=== PATIENT | male | born 1950 | race Caucasian/White ===

== ENCOUNTER 2024-07-31 08:14 | Day surgery (SDC) | payer MEDICARE ==
[2024-07-31] MEDS: SODIUM CHLORIDE 0.9% 500 ML 500 ML IV ONE (08:56)
[2024-07-31 09:04] VITALS: TEMP 97.1
[2024-07-31] MEDS: SODIUM CHLORIDE 0.9% 500 ML 500 ML IV SCH (09:29)
[2024-07-31] MEDS ORDERED: BENZOCAINE SPRAY 1 CAN TOPICAL STA (09:42)
[2024-07-31] MEDS ORDERED: PROPOFOL 10 MG/ML 20 ML VIAL IV ONE (10:03)
[2024-07-31] MEDS: BENZOCAINE SPRAY 1 EACH MM ONE (10:04)
--- NOTE | 2024-07-31 11:03 | ECHOT ---
TRANSESOPHAGEAL ECHOCARDIOGRAM INDICATION: To rule out intracardiac thrombus in a patient with persistent atrial fibrillation. PROCEDURE NOTE: After obtaining informed consent, transesophageal echocardiogram was performed in left lateral position using an Omniplane probe. Local and IV sedation were obtained by the geophysical data technician, and the patient tolerated the procedure well without any obvious immediate complications. FINDINGS: 1. There is no intracardiac thrombus within the left atrial appendage, left atrium, left ventricle, right atrium, or right ventricle. 2. Left ventricle has normal size and systolic function. 3. There is mild mitral regurgitation noted. There is mild tricuspid regurgitation noted. Aortic valve is free of stenosis or regurgitation. There is mild dilatation of the aortic sinuses. There is no evidence of [id number] shunt by color-flow Doppler or [id number] shunt by agitated saline contrast study. CONCLUSIONS: No intracardiac thrombus. PLAN: The patient will undergo cardioversion. MMODL / IJN: [id number] /
[2024-07-31 11:10] VITALS: PULSE 61; RESP 12
--- NOTE | 2024-07-31 11:18 | PCN ---
PROCEDURE NOTE INDICATIONS: Persistent atrial fibrillation. DESCRIPTION OF PROCEDURE: After obtaining informed consent, ruling out intracardiac thrombus with the TAIWO, the patient underwent electrical cardioversion with 150 joules of synchronized DC current. He is adequately anticoagulated, converted to sinus rhythm following a single shock. INDIO / TESSY: [id number] /
[2024-07-31 11:28] VITALS: BP 114/73
== END 2024-07-31 11:47 | disposition home or self-care (01) ==
LOC: OR 08:14
PROVIDERS: ATTEND Internal Medicine Cardiovascular Disease
DX: I48.19 Other persistent atrial fibrillation (principal); I10 Essential (primary) hypertension; E78.5 Hyperlipidemia, unspecified; F32.A Depression, unspecified; F17.210 Nicotine dependence, cigarettes, uncomplicated; M19.90 Unspecified osteoarthritis, unspecified site; Z79.02 Long term (current) use of antithrombotics/antiplatelets; Z79.899 Other long term (current) drug therapy
CPT/HCPCS: 93312; 93320; 93325; 92960; J2704

== ENCOUNTER 2024-08-17 13:53 | Inpatient (IN) | payer MEDICARE ==
[2024-08-17 15:06] LABS: Basophils # (A) 0.1 k/uL (0-0.2); Basophils % (A) 1 %; Eosinophils # (A) 0.1 k/uL (0-0.7); Eosinophils % (A) 2 %; HCT 49.3 % (39.0-53.0); HGB 16.5 gm/dL (13.0-17.5); Lymphocytes # (A) 1.7 k/uL (1.0-4.8); Lymphocytes % (A) 22 %; MCH 29.6 pg (25.0-35.0); MCHC 33.5 g/dL (31.0-37.0); MCV 88.3 fL (80.0-100.0); Mean Platelet Volume 7.3; Monocytes # (A) 0.5 k/uL (0-1.0); Monocytes % (A) 6 %; Neutrophils # (A) 5.1 k/uL (1.3-7.7); Neutrophils % (A) 68 %; Platelet Count 226 k/uL (150-450); RBC 5.58 m/uL (4.30-5.90); RDW 12.9 % (11.5-15.5); WBC 7.6 k/uL (3.8-10.6)
[2024-08-17 15:14] LABS: Partial Thromboplastin Time 26.3 sec (22.0-30.0); Prothrombin Time 11.1 sec (10.0-12.5)
[2024-08-17 15:15] LABS: ALT 25 U/L (4-49); African American GFR (CKD) 83 (>60 ml/min/1.73 sqM); Albumin 4.1 g/dL (3.5-5.0); Anion Gap 11 mmol/L; Blood Urea Nitrogen 19 mg/dL (9-20); Carbon Dioxide 24 mmol/L (22-30); Chloride 99 mmol/L (98-107); Glucose 100 mg/dL (74-99); Non-African American GFR(CKD) 72 (>60 ml/min/1.73 sqM); Sodium 134 mmol/L (137-145); Total Bilirubin 1.1 mg/dL (0.2-1.3); Total Protein 7.5 g/dL (6.3-8.2)
[2024-08-17 15:16] LABS: AST 37 U/L (17-59); Alkaline Phosphatase 89 U/L (38-126); Calcium 9.1 mg/dL (8.4-10.2); Magnesium 1.9 mg/dL (1.6-2.3)
[2024-08-17] MEDS: SODIUM CHLORIDE 0.9% 1,000 ML IV ONE (15:48)
[2024-08-17] MEDS: DILTIAZEM 125 MG in SODIUM CHLORIDE 0.9% 100 ML IV SCH (15:48)
[2024-08-17] MEDS: DILTIAZEM DRIP BOLUS FROM BAG 1 MG SOLN IV ONE (15:49)
[2024-08-17] MEDS ORDERED: NALOXONE 0.4 MG/ML 1 ML VIAL IV PRN (15:51)
--- NOTE | 2024-08-17 15:51 | ED ---
Arrhythmia/Palpitations HPI - General Chief Complaint: Arrhythmia/Palpitations Stated Complaint: irregular heart rate Time Seen by Provider: 08/17/24 13:55 Source: patient Mode of arrival: ambulatory Limitations: no limitations - History of Present Illness Initial Comments: 74-year-old male with past medical history of A-fib who presents to the emergency department reporting fatigue. Reports that he went to [employer] this morning and felt short of breath and tired. He went home and took his vitals and found that his heart rate was 144. He does have a history of A-fib and typically checks his vitals daily. His heart rate was normal yesterday. He did have a cardioversion on the which was originally successful. States that he followed up with Dr. Steinberg in office for his follow-up and was found to be back in A-fib. Previously he took flecainide but at this appointment Dr. Steinberg told him to stop as it was "useless". He was told that he would have to see Dr. Price for an ablation. He called for an appointment however he cannot get in till October. Typically he cannot feel his heart racing. States when he was diagnosed he had no idea that he was in A-fib. Today was the first time that the patient felt slightly fatigued. He denies fevers, chills or cough. No chest pain. No abdominal pain. No other alleviating, precipitating or modifying factors - Related Data Home Medications Medication Instructions Recorded Confirmed Apixaban [Eliquis] 5 mg PO BID 07/29/24 08/17/24 Otc Prevagen 1 tab PO DAILY 07/29/24 08/17/24 Simvastatin [Zocor] 20 mg PO HS 07/29/24 08/17/24 Ibuprofen [Motrin Ib] 400 mg PO Q8H PRN 08/17/24 08/17/24 Previous Rx's Medication Instructions Recorded Dapagliflozin Propanediol [Farxiga] 10 mg PO DAILY #30 tab 08/19/24 Metoprolol Tartrate [Lopressor] 25 mg PO BID #60 tab 08/19/24 Allergies Allergy/AdvReac Type Severity Reaction Status Date / Time No Known Allergies Allergy Verified 08/17/24 19:22 Review of Systems ROS Statement: Those systems with pertinent positive or pertinent negative responses have been documented in the HPI. ROS Other: All systems not noted in ROS Statement are negative. Past Medical History Past Medical History: Atrial Fibrillation, Cancer, Hyperlipidemia, Hypertension, Osteoarthritis (OA) Additional Past Medical History / Comment(s): basal cell on face 20yrs ago. hx polyps History of Any Multi-Drug Resistant Organisms: None Reported Past Surgical History: Hernia Repair Additional Past Surgical History / Comment(s): basal cell removed, colonoscopy, ? comprehensive dx. [facility]. Cardioversion Past Anesthesia/Blood Transfusion Reactions: No Reported Reaction Past Psychological History: Depression Smoking Status: Former smoker - Past Family History Brother(s) Family Medical History: Chest Pain / Angina, Coronary Artery Disease (CAD) Additional Family Medical History / Comment(s): burst aortic aneursym, on O2 Father Family Medical History: Cancer Additional Family Medical History / Comment(s): bladder cancer Mother Additional Family Medical History / Comment(s): non hodgkins and hodgkins lymphoma General Exam Limitations: no limitations General appearance: alert, in no apparent distress Head exam: Present: atraumatic, normocephalic, normal inspection Eye exam: Present: normal appearance, PERRL, EOMI. Absent: scleral icterus, conjunctival injection, periorbital swelling ENT exam: Present: normal exam, mucous membranes moist Neck exam: Present: normal inspection. Absent: tenderness, meningismus, lympha denopathy Respiratory exam: Present: normal lung sounds bilaterally. Absent: respiratory distress, wheezes, rales, rhonchi, stridor Cardiovascular Exam: Present: tachycardia, irregular rhythm, normal heart sounds. Absent: systolic murmur, diastolic murmur, rubs, gallop, clicks GI/Abdominal exam: Present: soft, normal bowel sounds. Absent: distended, tenderness, guarding, rebound, rigid Extremities exam: Present: normal inspection, full ROM, normal capillary refill. Absent: tenderness, pedal edema, joint swelling, calf tenderness Back exam: Present: normal inspection Neurological exam: Present: alert, oriented X3, CN II-XII intact Psychiatric exam: Present: normal affect, normal mood Skin exam: Present: warm, dry, intact, normal color. Absent: rash Course Vital Signs 08/17/24 08/17/24 08/17/24 13:54 14:09 14:50 Temperature 98.1 F Pulse Rate 73 129 H Pulse Rate [ 141 H Electrical Cad Designer ] Respiratory 20 18 Rate Blood Pressure 135/91 91/71 O2 Sat by Pulse 100 99 Oximetry 08/17/24 08/17/24 08/17/24 15:29 16:00 16:09 Temperature Pulse Rate 141 H 71 70 Pulse Rate [ Electrical Cad Designer ] Respiratory 18 18 18 Rate Blood Pressure 101/90 108/71 104/76 O2 Sat by Pulse 99 97 96 Oximetry 08/17/24 08/17/24 08/17/24 16:15 16:30 16:45 Temperature Pulse Rate 70 70 Pulse Rate [ Electrical Cad Designer ] Respiratory 18 16 16 Rate Blood Pressure 104/76 112/79 108/70 O2 Sat by Pulse 97 96 94 L Oximetry 08/17/24 08/17/24 08/17/24 17:00 17:15 17:30 Temperature Pulse Rate 71 88 77 Pulse Rate [ Electrical Cad Designer ] Respiratory 16 18 18 Rate Blood Pressure 119/74 109/77 108/86 O2 Sat by Pulse 96 95 95 Oximetry 08/17/24 08/17/24 08/17/24 17:45 18:00 19:15 Temperature 99.4 F Pulse Rate 71 71 80 Pulse Rate [ Electrical Cad Designer ] Respiratory 16 15 20 Rate Blood Pressure 113/84 106/64 O2 Sat by Pulse 96 95 100 Oximetry 08/17/24 08/18/24 08/18/24 22:00 00:00 02:00 Temperature 98.1 F Pulse Rate 70 70 72 Pulse Rate [ Electrical Cad Designer ] Respiratory 20 20 20 Rate Blood Pressure 117/79 110/74 105/76 O2 Sat by Pulse 94 L 95 95 Oximetry 08/18/24 08/18/24 08/18/24 04:00 06:00 08:00 Temperature Pulse Rate 71 71 72 Pulse Rate [ Electrical Cad Designer ] Respiratory 18 18 20 Rate Blood Pressure 104/76 105/80 114/78 O2 Sat by Pulse 94 L 95 96 Oximetry 08/18/24 08/18/24 08/18/24 09:36 10:16 11:00 Temperature Pulse Rate 75 70 68 Pulse Rate [ Electrical Cad Designer ] Respiratory 20 20 20 Rate Blood Pressure 108/89 120/89 124/84 O2 Sat by Pulse 96 97 97 Oximetry 08/18/24 08/18/24 08/18/24 11:40 12:22 13:30 Temperature Pulse Rate 55 L 65 68 Pulse Rate [ Electrical Cad Designer ] Respiratory 20 20 Rate Blood Pressure 126/88 116/82 O2 Sat by Pulse 96 96 Oximetry 08/18/24 08/18/24 08/18/24 14:00 16:00 17:55 Temperature Pulse Rate 69 72 71 Pulse Rate [ Electrical Cad Designer ] Respiratory 20 20 20 Rate Blood Pressure 109/78 121/86 127/90 O2 Sat by Pulse 96 95 95 Oximetry 08/18/24 08/18/24 08/19/24 19:27 21:28 00:41 Temperature 98.1 F Pulse Rate 71 70 70 Pulse Rate [ Electrical Cad Designer ] Respiratory 18 18 17 Rate Blood Pressure 116/80 116/79 114/87 O2 Sat by Pulse 95 95 95 Oximetry 08/19/24 08/19/24 08/19/24 03:56 05:46 08:48 Temperature 97.8 F Pulse Rate 70 71 110 H Pulse Rate [ Electrical Cad Designer ] Respiratory 16 16 20 Rate Blood Pressure 132/87 111/68 111/50 O2 Sat by Pulse 94 L 95 95 Oximetry 08/19/24 08/19/24 10:59 13:48 Temperature Pulse Rate 110 H 110 H Pulse Rate [ Electrical Cad Designer ] Respiratory 20 20 Rate Blood Pressure 110/60 111/60 O2 Sat by Pulse 98 98 Oximetry Medical Decision Making - Medical Decision Making Was pt. sent in by a medical professional or institution (, PA, SPECIALIST ICU, urgent care, hospital, or care home...) When possible be specific @ -No Did you speak to anyone other than the patient for history (EMS, parent, family, police, friend...)? What history was obtained from this source @ -No Did you review nursing and triage notes (agree or disagree)? Why? @ -I reviewed and agree with nursing and triage notes Were old charts reviewed (outside hosp., previous admission, EMS record, old EKG, old radiological studies, urgent care reports/EKG's, care home records)? Report findings @ -Reviewed the patient's procedure note from his cardioversion from July 31 Differential Diagnosis (chest pain, altered mental status, abdominal pain women, abdominal pain men, vaginal bleeding, weakness, fever, dyspnea, syncope, headache, dizziness, GI bleed, back pain, seizure, CVA, palpatations, mental health, musculoskeletal)? @ -Differential Palpitations Ventricular arrhythmias, atrial arrhythmias, myocardial infarction, anemia, thyrotoxicosis, electrolyte imbalance, hypokalemia, pulmonary embolism, pulmonary disease, drugs, alcohol, anxiety, stress.... This is not meant to be an all-inclusive list. EKG interpreted by me (3pts min.). @ -Yes and demonstrates tachycardic rate with a rate of 142. IA interval 139. QRS 96. QTc of 372. No acute ST segment elevations or depressions X-rays interpreted by me (1pt min.). @ -Yes and demonstrates no acute process CT interpreted by me (1pt min.). @ -None done U/S interpreted by me (1pt. min.). @ -None done What testing was considered but not performed or refused? (CT, X-rays, U/S, labs)? Why? @ -None What meds were considered but not given or refused? Why? @ -None Did you discuss the management of the patient with other professionals (professionals i.e. , PA, SPECIALIST ICU, lab, RT, psych nurse, social human services assistants, envelope folding machine operator, teacher, correctional officer lieutenant, telephonic case manager)? Give summary @ -Spoke with Dr. Goss who accepted the patient Was smoking cessation discussed for >3mins.? @ -No Was critical care preformed (if so, how long)? @ -Yes, 35 minutes for management of A-fib with RVR Were there social determinants of health that impacted care today? How? (Homelessness, low income, unemployed, alcoholism, drug addiction, transportation, low edu. Level, literacy, decrease access to med. care, group home, rehab)? @ -No Was there de-escalation of care discussed even if they declined (Discuss DNR or withdrawal of care, Hospice)? DNR status @ -No What co-morbidities impacted this encounter? (DM, HTN, Smoking, COPD, CAD, Cancer, CVA, ARF, Chemo, Hep., AIDS, mental health diagnosis, sleep apnea, morbid obesity)? @ -A-fib Was patient admitted / discharged? Hospital course, mention meds given and route, prescriptions, significant lab abnormalities, going to OR and other pertinent info. @ -Upon arrival patient seen and evaluated in trauma bay four. Thorough history and physical exam was performed. IV was established. Laboratory studies are conducted. Chest x-ray was performed. Patient is in rapid A-fib. Patient is initiated on a Cardizem drip. Spoke with Dr. Nerusu for admission Undiagnosed new problem with uncertain prognosis? @ -No Drug Therapy requiring intensive monitoring for toxicity (Heparin, Nitro, Insulin, Cardizem)? @ -Cardizem Were any procedures done? @ -No Diagnosis/symptom? @ -A-fib with RVR Acute, or Chronic, or Acute on Chronic? @ -Acute Uncomplicated (without systemic symptoms) or Complicated (systemic symptoms)? @ -Complicated Side effects of treatment? @ -Hypotension Exacerbation, Progression, or Severe Exacerbation? @ -No Poses a threat to life or bodily function? How? (Chest pain, [place], [place], pneumonia, PE, COPD, DKA, ARF, appy, cholecystitis, CVA, Diverticulitis, Homicidal, Suicidal, threat to staff... and all critical care pts) @ -No - Lab Data Result diagrams: 08/19/24 05:40 08/19/24 05:40 Lab Results 08/17/24 08/17/24 08/17/24 Range/Units 14:58 14:58 14:58 WBC 7.6 (3.8-10.6) k/uL RBC 5.58 (4.30-5.90) m/uL Hgb 16.5 (13.0-17.5) gm/dL Hct 49.3 (39.0-53.0) % MCV 88.3 (80.0-100.0) fL MCH 29.6 (25.0-35.0) pg MCHC 33.5 (31.0-37.0) g/dL RDW 12.9 (11.5-15.5) % Plt Count 226 (150-450) k/uL MPV 7.3 Neutrophils % 68 % Lymphocytes % 22 % Monocytes % 6 % Eosinophils % 2 % Basophils % 1 % Neutrophils # 5.1 (1.3-7.7) k/uL Lymphocytes # 1.7 (1.0-4.8) k/uL Monocytes # 0.5 (0-1.0) k/uL Eosinophils # 0.1 (0-0.7) k/uL Basophils # 0.1 (0-0.2) k/uL PT 11.1 (10.0-12.5) sec INR 1.0 (<1.2) APTT 26.3 (22.0-30.0) sec Sodium 134 L (137-145) mmol/L Potassium 5.0 (3.5-5.1) mmol/L Chloride 99 (98-107) mmol/L Carbon Dioxide 24 (22-30) mmol/L Anion Gap 11 mmol/L BUN 19 (9-20) mg/dL Creatinine 1.02 (0.66-1.25) mg/dL Est GFR (CKD-EPI)AfAm 83 (>60 ml/min/1.73 sqM) Est GFR (CKD-EPI)NonAf 72 (>60 ml/min/1.73 sqM) Glucose 100 H (74-99) mg/dL Calcium 9.1 (8.4-10.2) mg/dL Magnesium 1.9 (1.6-2.3) mg/dL Total Bilirubin 1.1 (0.2-1.3) mg/dL AST 37 (17-59) U/L ALT 25 (4-49) U/L Alkaline Phosphatase 89 (38-126) U/L Troponin I (0.000-0.034) ng/mL Total Protein 7.5 (6.3-8.2) g/dL Albumin 4.1 (3.5-5.0) g/dL 08/17/24 Range/Units 14:58 WBC (3.8-10.6) k/uL RBC (4.30-5.90) m/uL Hgb (13.0-17.5) gm/dL Hct (39.0-53.0) % MCV (80.0-100.0) fL MCH (25.0-35.0) pg MCHC (31.0-37.0) g/dL RDW (11.5-15.5) % Plt Count (150-450) k/uL MPV Neutrophils % % Lymphocytes % % Monocytes % % Eosinophils % % Basophils % % Neutrophils # (1.3-7.7) k/uL Lymphocytes # (1.0-4.8) k/uL Monocytes # (0-1.0) k/uL Eosinophils # (0-0.7) k/uL Basophils # (0-0.2) k/uL PT (10.0-12.5) sec INR (<1.2) APTT (22.0-30.0) sec Sodium (137-145) mmol/L Potassium (3.5-5.1) mmol/L Chloride (98-107) mmol/L Carbon Dioxide (22-30) mmol/L Anion Gap mmol/L BUN (9-20) mg/dL Creatinine (0.66-1.25) mg/dL Est GFR (CKD-EPI)AfAm (>60 ml/min/1.73 sqM) Est GFR (CKD-EPI)NonAf (>60 ml/min/1.73 sqM) Glucose (74-99) mg/dL Calcium (8.4-10.2) mg/dL Magnesium (1.6-2.3) mg/dL Total Bilirubin (0.2-1.3) mg/dL AST (17-59) U/L ALT (4-49) U/L Alkaline Phosphatase (38-126) U/L Troponin I <0.012 (0.000-0.034) ng/mL Total Protein (6.3-8.2) g/dL Albumin (3.5-5.0) g/dL Disposition Clinical Impression: Atrial fibrillation with RVR Disposition: ADMITTED IP TO THIS HOSP Condition: Stable Is patient prescribed a controlled substance at d/c from ED?: No Time of Disposition: 15:50 Decision to Admit Reason: Admit from EC Decision Date: 08/17/24 Decision Time: 15:50
--- NOTE | 2024-08-17 16:01 | XR ---
EXAMINATION TYPE: XR chest 2V DATE OF EXAM: 08/17/2024 3:57 PM COMPARISON: None TECHNIQUE: XR chest 2V Frontal and lateral views of the chest. CLINICAL INDICATION:Male, 74 years old with history of dysrhythmia; FINDINGS: Lungs/Pleura: There is no evidence of pleural effusion, focal consolidation, or pneumothorax. Pulmonary vascularity: Unremarkable. Heart/mediastinum: Cardiomediastinal silhouette is unremarkable. Musculoskeletal: No acute osseous pathology. IMPRESSION: No acute cardiopulmonary disease/process. [facility], , 08/17/2024 3:58 PM
[2024-08-17] MEDS: SODIUM CHLORIDE 0.9% 1,000 ML IV SCH (16:55)
--- NOTE | 2024-08-17 18:36 | P.HPIM ---
History of Present Illness H&P Date: 08/17/24 Chief Complaint: Rapid heart rate Patient is a 74-year-old male with a past medical history of hypertension, hyperemia, atrial fibrillation on anticoagulation with Eliquis presents to ER with complaints of with complaints of generalized weakness, fatigue and shortness of breath. Patient states that he went to [employer] this morning and felt shortness of breath and tired. He went home and took his vitals and noticed that his heart rate went up to 140s. Patient to ER for further evaluation. Patient underwent TAIWO cardioversion on 07/31/2024 and was converted to sinus rhythm following single shock. Patient was seen in the office later and was found to be in atrial fibrillation with controlled heart rate. Patient was on flecainide previously. Patient otherwise denied any complaints of fever or chills. No nausea vomiting abdominal pain or diarrhea. Patient states that he had tooth pulled out on last . Laboratory data showed WBC 7.6 hemoglobin 16.9 platelets 226 sodium 134 potassium 5.0 chloride 99 bicarb is 24 BUN 19 and creatinine 1.02 and blood sugar. Liver enzymes not elevated troponin 0.012. Albumin 4.1. Chest x-ray showed no acute cardiopulmonary process. EKG showed junctional tachycardia, possible atrial flutter Review of Systems Constitutional: Patient denies any fever or chills . No generalized weakness or weight loss. Abdomen: Patient denied nausea vomiting and diarrhea and abdominal pain. Cardiovascular: Patient denies any chest pain. Mild short of breath no palpitations. No leg swelling. Respiratory: patient denied any cough or sputum production. No shortness of breath Neurologic: Patient denied any numbness or tingling. no headache. Musculoskeletal: Patient denies any complaints of joint swelling or deformity. Skin: Negative Psychiatric: Negative Endocrine: No heat or cold intolerance. No recent weight gain. Genitourinary: No dysuria or hematuria. All other 14 point ROS negative except the above Past Medical History Past Medical History: Atrial Fibrillation, Cancer, Hyperlipidemia, Hypertension, Osteoarthritis (OA) Additional Past Medical History / Comment(s): basal cell on face 20yrs ago. hx polyps History of Any Multi-Drug Resistant Organisms: None Reported Past Surgical History: Hernia Repair Additional Past Surgical History / Comment(s): basal cell removed, colonoscopy, ? comprehensive dx. [facility]. Cardioversion Past Anesthesia/Blood Transfusion Reactions: No Reported Reaction Past Psychological History: Depression Smoking Status: Former smoker - Past Family History Brother(s) Family Medical History: Chest Pain / Angina, Coronary Artery Disease (CAD) Additional Family Medical History / Comment(s): burst aortic aneursym, on O2 Father Family Medical History: Cancer Additional Family Medical History / Comment(s): bladder cancer Mother Additional Family Medical History / Comment(s): non hodgkins and hodgkins lymphoma Medications and Allergies Home Medications Medication Instructions Recorded Confirmed Type Apixaban [Eliquis] 5 mg PO BID 07/29/24 07/31/24 History Flecainide Acetate 50 mg PO BID 07/29/24 07/31/24 History Otc Prevagen 1 tab PO DAILY 07/29/24 07/31/24 History Simvastatin [Zocor] 20 mg PO HS 07/29/24 07/31/24 History lisinopriL [Zestril] 10 mg PO HS 07/29/24 07/31/24 History Allergies Allergy/AdvReac Type Severity Reaction Status Date / Time No Known Allergies Allergy Verified 08/17/24 14:00 Physical Exam Vitals: Vital Signs Temp Pulse Pulse Resp BP Pulse Ox 08/17/24 16:09 70 18 104/76 96 08/17/24 15:29 141 H 18 101/90 99 08/17/24 14:50 129 H 18 91/71 99 08/17/24 14:09 141 H 08/17/24 13:54 98.1 F 73 20 135/91 100 Intake and Output 08/17/24 08/17/24 08/17/24 06:59 14:59 22:59 Other: Weight 113.398 kg PHYSICAL EXAMINATION: Patient is lying in the bed comfortably, no acute distress, awake alert and oriented.. HEENT: Normocephalic. Neck is supple. Pupils reactive. Nostrils clear. Oral cavity is moist. Neck reveals no JVD, carotid bruits, or thyromegaly. CHEST EXAMINATION: Trachea is central. Symmetrical expansion. Lung goss clear to auscultation and percussion. CARDIAC: Normal S1, S2 with no gallops. Irregularly irregular rhythm. ABDOMEN: Soft. Bowel sounds normal. No organomegaly. No abdominal bruits. Extremities: reveal no edema. No clubbing or cyanosis Neurologically awake, alert, oriented x3 with well-coordinated movements. No gross focal deficits noted Skin: No rash or skin lesions. Psychiatric: Coperative. Nonsuicidal Musculoskeletal: No joint swelling or deformity. Normal range of motion. Results CBC & Chem 7: 08/17/24 14:58 08/17/24 14:58 Labs: Abnormal Lab Results - Last 24 Hours (Table) 08/17/24 Range/Units 14:58 Sodium 134 L (137-145) mmol/L Glucose 100 H (74-99) mg/dL Thrombosis Risk Factor Assmnt - DVT/VTE Prophylaxis DVT/VTE Prophylaxis: Pharmacologic Prophylaxis ordered Assessment and Plan Assessment: Atrial fibrillation with rapid ventricular response. History of DC cardioversion on 08/01/2023 with conversion to sinus rhythm. Hypertension Hyperlipidemia Osteoarthritis History of basal cell cancer on face 20 years ago Depression Prior history of smoking Plan: Patient will be admitted on telemetry. Started on Cardizem drip for rate control. Continue with anticoagulation with Eliquis. Lisinopril is on hold due to low blood pressure. Continue with his follow-up closely. Cardiology was consulted for evaluation. Time with Patient: Greater than 30
[2024-08-17] MEDS: ATORVASTATIN 10 MG TAB PO SCH (20:10)
[2024-08-17] MEDS: APIXABAN 5 MG TAB PO SCH (20:10)
[2024-08-18 07:57] LABS: Basophils % (A) 0 %; Eosinophils # (A) 0.1 k/uL (0-0.7); Eosinophils % (A) 2 %; HCT 50.2 % (39.0-53.0); HGB 15.9 gm/dL (13.0-17.5); Lymphocytes # (A) 1.5 k/uL (1.0-4.8); Lymphocytes % (A) 24 %; MCH 28.7 pg (25.0-35.0); MCHC 31.7 g/dL (31.0-37.0); MCV 90.6 fL (80.0-100.0); Mean Platelet Volume 7.2; Monocytes # (A) 0.4 k/uL (0-1.0); Monocytes % (A) 6 %; Neutrophils # (A) 4.2 k/uL (1.3-7.7); Neutrophils % (A) 66 %; Platelet Count 182 k/uL (150-450); RBC 5.54 m/uL (4.30-5.90); RDW 13.1 % (11.5-15.5); WBC 6.3 k/uL (3.8-10.6)
[2024-08-18 08:11] LABS: African American GFR (CKD) >90 (>60 ml/min/1.73 sqM); Anion Gap 9 mmol/L; Blood Urea Nitrogen 14 mg/dL (9-20); Calcium 8.8 mg/dL (8.4-10.2); Carbon Dioxide 24 mmol/L (22-30); Chloride 105 mmol/L (98-107); Glucose 92 mg/dL (74-99); Non-African American GFR(CKD) 86 (>60 ml/min/1.73 sqM); Potassium 4.3 mmol/L (3.5-5.1); Sodium 138 mmol/L (137-145)
[2024-08-18] MEDS ORDERED: HEPARIN SODIUM 1,000 UN/ML (10ML VL) IV PRN (08:47)
[2024-08-18] MEDS ORDERED: DAPAGLIFLOZIN PROPANEDIOL 10 MG TABLET PO SCH (10:00)
[2024-08-18] MEDS: DAPAGLIFLOZIN PROPANEDIOL 10 MG TABLET PO SCH (10:15)
[2024-08-18] MEDS: METOPROLOL TARTRATE 50 MG TAB PO SCH (10:15)
[2024-08-18 10:58] LABS: NT-Pro-B-Type Natriuretic Pept 292 pg/mL
[2024-08-18 15:35] LABS: Chol/HDL Ratio 3.37 Ratio; LDL Cholesterol,Calculated 95.7 mg/dL (0.0-131.0); VLDL Calculation 18.98 mg/dL (5.00-40.00)
--- NOTE | 2024-08-18 17:28 | P.CRDCN ---
History of Present Illness Consult date: 08/18/24 History of present illness: 74-year-old male with PMH of hypertension, hyperlipidemia, atrial fibrillation (on Eliquis) presents to the ER with complaints of generalized weakness, fatigue, and shortness of breath. States yesterday he went to the bank and felt shortness of breath and became tired. Reports he went home to take his vitals and noticed his heart rate was in the 140s. States he decided to come to the ER for further evaluation at that point. EKG in the ER shows junctional tachycardia, possible atrial flutter, chest x-ray shows no acute cardiopulmonary process. Labs significant for WBC 7.6,hemoglobin 16.9 platelets 226 sodium 134 potassium 5.0 chloride 99 bicarb is 24 BUN 19 and creatinine 1.02 and blood sugar. Liver enzymes not elevated troponin 0.012. Albumin 4.1. Cardiac history: Atrial fibrillation (on Eliquis), hypertension, hyperlipidemia Cardiac medications: Lisinopril 5 mg p.o. at bedtime, simvastatin 20 mg p.o. at bedtime, Eliquis 5 mg p.o. twice daily. Patient was on flecainide previously. Cardiac imaging: TAIWO from 07/31 showed no intracardiac thrombus, normal LV size and systolic function, mild MR, mild TR. Lexiscan MPI 01/11, exercise tolerance test 11/11, Holter 11/11, echo 07/15 (need office notes) Surgical history: Electrocardioversion with 150 J of synchronized DC current where patient was converted to sinus rhythm following single shock. Family history: AAA in twin brother Social history: 4-5 beers once a week, quit smoking 35 years ago ROS: Constitutional: Patient denies any fever or chills . No generalized weakness or weight loss. Abdomen: Patient denied nausea vomiting and diarrhea and abdominal pain. Cardiovascular: Patient denies any chest pain. Mild short of breath no palpitations. No leg swelling. Respiratory: patient denied any cough or sputum production. No shortness of breath Neurologic: Patient denied any numbness or tingling. no headache. Musculoskeletal: Patient denies any complaints of joint swelling or deformity. Skin: Negative Psychiatric: Negative Endocrine: No heat or cold intolerance. No recent weight gain. Genitourinary: No dysuria or hematuria. All other 14 point ROS negative except the above PHYSICAL EXAMINATION: Patient is lying in the bed comfortably, no acute distress, awake alert and oriented.. HEENT: Normocephalic. Neck is supple. Pupils reactive. Nostrils clear. Oral cavity is moist. Neck reveals no JVD, carotid bruits, or thyromegaly. CHEST EXAMINATION: Trachea is central. Symmetrical expansion. Lung goss clear to auscultation and percussion. CARDIAC: Normal S1, S2 with no gallops. Irregularly irregular rhythm. ABDOMEN: Soft. Bowel sounds normal. No organomegaly. No abdominal bruits. Extremities: reveal no edema. No clubbing or cyanosis Neurologically awake, alert, oriented x3 with well-coordinated movements. No gross focal deficits noted Skin: No rash or skin lesions. Psychiatric: Coperative. Nonsuicidal Musculoskeletal: No joint swelling or deformity. Normal range of motion. Assessment: Atypical atrial flutter History of DC cardioversion on 08/01/2023 with cardioversion to sinus rhythm Hypertension Hyperlipidemia History of smoking History of basal cell cancer of the face 20 years ago OA Plan: -Started metoprolol 25 mg twice daily -Start Farxiga 10 mg p.o. daily -Discontinue Cardizem drip -If after starting metoprolol heart rate is within normal limits, patient can be discharged today. -Need A-fib ablation, potentially Dr. Price can see the patient later today Past Medical History Past Medical History: Atrial Fibrillation, Cancer, Hyperlipidemia, Hypertension, Osteoarthritis (OA) Additional Past Medical History / Comment(s): basal cell on face 20yrs ago. hx polyps History of Any Multi-Drug Resistant Organisms: None Reported Past Surgical History: Hernia Repair Additional Past Surgical History / Comment(s): basal cell removed, colonoscopy, ? comprehensive dx. [facility]. Cardioversion Past Anesthesia/Blood Transfusion Reactions: No Reported Reaction Past Psychological History: Depression Smoking Status: Former smoker - Past Family History Brother(s) Family Medical History: Chest Pain / Angina, Coronary Artery Disease (CAD) Additional Family Medical History / Comment(s): burst aortic aneursym, on O2 Father Family Medical History: Cancer Additional Family Medical History / Comment(s): bladder cancer Mother Additional Family Medical History / Comment(s): non hodgkins and hodgkins lymphoma Medications and Allergies Home Medications Medication Instructions Recorded Confirmed Type Apixaban [Eliquis] 5 mg PO BID 07/29/24 08/17/24 History Otc Prevagen 1 tab PO DAILY 07/29/24 08/17/24 History Simvastatin [Zocor] 20 mg PO HS 07/29/24 08/17/24 History Ibuprofen [Motrin Ib] 400 mg PO Q8H PRN 08/17/24 08/17/24 History lisinopriL [Zestril] 5 mg PO HS 08/17/24 08/17/24 History Allergies Allergy/AdvReac Type Severity Reaction Status Date / Time No Known Allergies Allergy Verified 08/17/24 19:22 Physical Exam Vitals: Vital Signs Temp Pulse Pulse Resp BP Pulse Ox 08/18/24 06:00 71 18 105/80 95 08/18/24 04:00 71 18 104/76 94 L 08/18/24 02:00 98.1 F 72 20 105/76 95 08/18/24 00:00 70 20 110/74 95 08/17/24 22:00 70 20 117/79 94 L 08/17/24 19:15 99.4 F 80 20 106/64 100 08/17/24 18:00 71 15 113/84 95 08/17/24 17:45 71 16 96 08/17/24 17:30 77 18 108/86 95 08/17/24 17:15 88 18 109/77 95 08/17/24 17:00 71 16 119/74 96 08/17/24 16:45 70 16 108/70 94 L 08/17/24 16:30 16 112/79 96 08/17/24 16:15 70 18 104/76 97 08/17/24 16:09 70 18 104/76 96 08/17/24 16:00 71 18 108/71 97 08/17/24 15:29 141 H 18 101/90 99 08/17/24 14:50 129 H 18 91/71 99 08/17/24 14:09 141 H 08/17/24 13:54 98.1 F 73 20 135/91 100 Results 08/18/24 07:07 08/18/24 07:07 Cardiac Enzymes 08/17/24 08/17/24 Range/Units 14:58 14:58 AST 37 (17-59) U/L Troponin I <0.012 (0.000-0.034) ng/mL Coagulation 08/17/24 Range/Units 14:58 PT 11.1 (10.0-12.5) sec APTT 26.3 (22.0-30.0) sec CBC 08/17/24 08/18/24 Range/Units 14:58 07:07 WBC 7.6 6.3 (3.8-10.6) k/uL RBC 5.58 5.54 (4.30-5.90) m/uL Hgb 16.5 15.9 (13.0-17.5) gm/dL Hct 49.3 50.2 (39.0-53.0) % Plt Count 226 182 (150-450) k/uL Comprehensive Metabolic Panel 08/17/24 08/18/24 Range/Units 14:58 07:07 Sodium 134 L 138 (137-145) mmol/L Potassium 5.0 4.3 (3.5-5.1) mmol/L Chloride 99 105 (98-107) mmol/L Carbon Dioxide 24 24 (22-30) mmol/L BUN 19 14 (9-20) mg/dL Creatinine 1.02 0.84 (0.66-1.25) mg/dL Glucose 100 H 92 (74-99) mg/dL Calcium 9.1 8.8 (8.4-10.2) mg/dL AST 37 (17-59) U/L ALT 25 (4-49) U/L Alkaline Phosphatase 89 (38-126) U/L Total Protein 7.5 (6.3-8.2) g/dL Albumin 4.1 (3.5-5.0) g/dL Current Medications Generic Name Dose Route Start Last Admin Trade Name Freq PRN Reason Stop Dose Admin Apixaban 5 mg 08/17/24 21:00 08/17/24 20:10 Apixaban 5 Mg Tab PO 5 mg BID GUERA Administration Protocol Atorvastatin Calcium 10 mg 08/17/24 21:00 08/17/24 20:10 Atorvastatin 10 Mg Tab PO 10 mg HS GUERA Administration Diltiazem HCl 125 mg/ Sodium 125 mls @ 5 mls/hr 08/17/24 15:00 08/17/24 15:48 Chloride IV 5 mg/hr .Q24H GUERA 5 mls/hr Administration 5 MG/HR Sodium Chloride 1,000 mls @ 130 mls/hr 08/17/24 16:00 08/18/24 03:37 Saline 0.9% IV Not Given .[id number] GUERA Naloxone HCl 0.2 mg 08/17/24 15:51 Naloxone 0.4 Mg/Ml 1 Ml Vial IV Q2M PRN Opioid Reversal 08/18/24 07:07 08/18/24 07:07
[2024-08-18] MEDS: METOPROLOL TARTRATE 25 MG TAB PO SCH (20:26)
--- NOTE | 2024-08-19 01:19 | PN ---
PROGRESS NOTE DATE OF SERVICE: 08/18/2024 SUBJECTIVE: This is a 74-year-old gentleman with a past medical history of multiple medical problems, who was admitted with fast ventricular rate. The patient also has some bradycardic episodes also. The patient is slated to have ablation as an outpatient. PHYSICAL EXAMINATION: VITAL SIGNS: Pulse is 69, irregular, blood pressure 119/76, respirations 20. CHEST: Clear. CARDIOVASCULAR: S1, S2. Regular. ABDOMEN: Soft. LABORATORY DATA: Reviewed. ASSESSMENT: 1. Atrial fibrillation with fast ventricular rate with some bradycardia. 2. History of DC cardioversion. 3. Hypertension. 4. Hyperlipidemia. 5. Multiple medical issues. RECOMMENDATIONS: Recommended to continue with current management, continue symptomatic treatment. Otherwise, TSH is normal. Closely followed by Cardiology. Guarded prognosis. Further recommendations to follow. MMODL / IJN: [id number] /
[2024-08-19 05:47] VITALS: TEMP 97.8
[2024-08-19 06:29] LABS: Basophils % (A) 0 %; Eosinophils # (A) 0.2 k/uL (0-0.7); Eosinophils % (A) 3 %; HCT 48.4 % (39.0-53.0); HGB 15.7 gm/dL (13.0-17.5); Lymphocytes # (A) 1.7 k/uL (1.0-4.8); Lymphocytes % (A) 24 %; MCH 28.9 pg (25.0-35.0); MCHC 32.4 g/dL (31.0-37.0); MCV 89.4 fL (80.0-100.0); Mean Platelet Volume 7.4; Monocytes # (A) 0.4 k/uL (0-1.0); Monocytes % (A) 6 %; Neutrophils # (A) 4.4 k/uL (1.3-7.7); Neutrophils % (A) 65 %; Platelet Count 199 k/uL (150-450); RBC 5.42 m/uL (4.30-5.90); RDW 13.1 % (11.5-15.5); WBC 6.8 k/uL (3.8-10.6)
[2024-08-19 06:49] LABS: African American GFR (CKD) >90 (>60 ml/min/1.73 sqM); Anion Gap 10 mmol/L; Blood Urea Nitrogen 15 mg/dL (9-20); Calcium 8.8 mg/dL (8.4-10.2); Carbon Dioxide 22 mmol/L (22-30); Chloride 105 mmol/L (98-107); Glucose 92 mg/dL (74-99); Non-African American GFR(CKD) 81 (>60 ml/min/1.73 sqM); Potassium 4.3 mmol/L (3.5-5.1); Sodium 137 mmol/L (137-145)
[2024-08-19 08:50] VITALS: PULSE 110; RESP 20
--- NOTE | 2024-08-19 10:21 | P.PN ---
Subjective Progress Note Date: 08/19/24 History of present illness: 74-year-old male with PMH of hypertension, hyperlipidemia, atrial fibrillation (on Eliquis) presents to the ER with complaints of generalized weakness, fatigue, and shortness of breath. States yesterday he went to the bank and felt shortness of breath and became tired. Reports he went home to take his vitals and noticed his heart rate was in the 140s. States he decided to come to the ER for further evaluation at that point. EKG in the ER shows junctional tachycardia, possible atrial flutter, chest x-ray shows no acute cardiopulmonary process. Labs significant for WBC 7.6,hemoglobin 16.9 platelets 226 sodium 134 potassium 5.0 chloride 99 bicarb is 24 BUN 19 and creatinine 1.02 and blood sugar. Liver enzymes not elevated troponin 0.012. Albumin 4.1. Cardiac history: Atrial fibrillation (on Eliquis), hypertension, hyperlipidemia Cardiac medications: Lisinopril 5 mg p.o. at bedtime, simvastatin 20 mg p.o. at bedtime, Eliquis 5 mg p.o. twice daily. Patient was on flecainide previously. Cardiac imaging: TAIWO from 07/31 showed no intracardiac thrombus, normal LV size and systolic function, mild MR, mild TR. Lexiscan MPI 01/11, exercise tolerance test 11/11, Holter 11/11, echo 07/15 (need office notes) Surgical history: Electrocardioversion with 150 J of synchronized DC current where patient was converted to sinus rhythm following single shock. Family history: AAA in twin brother Social history: 4-5 beers once a week, quit smoking 35 years ago PHYSICAL EXAMINATION: Patient is lying in the bed comfortably, no acute distress, awake alert and oriented.. HEENT: Normocephalic. Neck is supple. Pupils reactive. Nostrils clear. Oral cavity is moist. Neck reveals no JVD, carotid bruits, or thyromegaly. CHEST EXAMINATION: Trachea is central. Symmetrical expansion. Lung goss clear to auscultation and percussion. CARDIAC: Normal S1, S2 with no gallops. Irregularly irregular rhythm. ABDOMEN: Soft. Bowel sounds normal. No organomegaly. No abdominal bruits. Extremities: reveal no edema. No clubbing or cyanosis Neurologically awake, alert, oriented x3 with well-coordinated movements. No gross focal deficits noted Skin: No rash or skin lesions. Psychiatric: Coperative. Nonsuicidal Musculoskeletal: No joint swelling or deformity. Normal range of motion. Assessment: Atypical atrial flutter History of DC cardioversion on 08/01/2023 with cardioversion to sinus rhythm with relapse Hypertension Hyperlipidemia History of smoking History of basal cell cancer of the face 20 years ago OA Plan: -Started metoprolol 25 mg twice daily -Start Farxiga 10 mg p.o. daily - Eliquis 5 mg BID Will discuss with our schedulers in the office and see if this patient can get an early ablation appointment with Dr. Price. Objective - Vital Signs Vital signs: Vital Signs Temp 97.8 F 08/19/24 05:46 Pulse 110 H 08/19/24 08:48 Resp 20 08/19/24 08:48 BP 111/50 08/19/24 08:48 Pulse Ox 95 08/19/24 08:48 FiO2 - Labs CBC & Chem 7: 08/19/24 05:40 08/19/24 05:40
[2024-08-19 13:49] VITALS: BP 111/60
--- NOTE | 2024-08-21 10:03 | P.DS ---
Providers Date of admission: 08/17/24 15:51 Expected date of discharge: 08/19/24 Attending physician: Sisi Goss Consults: 08/17/24 15:51 Consult Physician Urgent Consulting Provider: [facility] Consult Reason/Comments: afib with rvr, hx afib Do you want consulting provider notified?: Yes Primary care physician: Daily Hawley DO Hospital Course: Final diagnosis Atrial fibrillation with rapid ventricular response. History of DC cardioversion on 07/31/2024 with conversion to sinus rhythm. Hypertension Hyperlipidemia Osteoarthritis History of basal cell cancer on face 20 years ago Depression Prior history of smoking GI prophylaxis DVT prophylaxis Full code Discharge disposition Patient is being discharged in a stable condition with guarded prognosis to home. Patient will follow-up with Dr. Hawley in the outpatient setting upon discharge. Patient is to continue with current medications and outpatient follow-up with Dr. Price cardiology as scheduled. Total time taken is greater than 35 minutes. Hospital course This is a 74-year-old male who was recently admitted with atrial fibrillation with RVR being closely monitored. Patient was recently evaluated and underwent cardioversion on 07/31/2024 and was doing okay although started experiencing palpitations and came to the hospital for further evaluation. Patient evaluated by cardiology during hospital making adjustments to medications recommending outpatient follow-up as scheduled appointment for ablation. Patient will be following up with preschool education director Dr. Price for this. Please refer to cardiology notes for further HPI. Patient reports to feeling well and would like to go home. Currently no reports of chest pain, shortness of breath, or palpitations. Patient is afebrile. No reports of nausea or vomiting and patient is tolerating diet. Patient will be discharged home today. Guarded prognosis given significant comorbidities Physical exam: Gen: This is a 74-year-old male who is awake, alert and oriented x 3, well- developed, elderly appearing HEENT: Head is atraumatic, normocephalic. Pupils equal, round. Sclerae is anicteric. NECK: Supple. No JVD. No lymphadenopathy. No thyromegaly. LUNGS: Diminished breath sounds bilaterally otherwise clear to auscultation. No wheezes or rhonchi. No intercostal retractions. HEART: S1, S2 are muffled, rate controlled on the monitor ABDOMEN: Soft. Bowel sounds are present. No masses. No tenderness. EXTREMITIES: No pedal edema. No calf tenderness. NEUROLOGICAL: Patient is awake, alert and oriented x3. Cranial nerves 2 through 12 are grossly intact. Please refer to medication reconciliation sheet for a list of medications. The impression and plan of care has been dictated by Rossy Olivier, Nurse Practitioner as directed. Dr. Frankie MD I have performed a history and examination and MDM of this patient, discussed the same with the dictator, and agree with the dictator's assessment and plan a s written ,documented as a scribe. Based on total visit time, I have performed more than 50% of the visit. Patient Condition at Discharge: Stable Plan - Discharge Summary New Discharge Prescriptions: New Dapagliflozin Propanediol [Farxiga] 10 mg PO DAILY #30 tab Metoprolol Tartrate [Lopressor] 25 mg PO BID #60 tab Continue Simvastatin [Zocor] 20 mg PO HS Otc Prevagen 1 tab PO DAILY Ibuprofen [Motrin Ib] 400 mg PO Q8H PRN PRN Reason: Pain Apixaban [Eliquis] 5 mg PO BID Discontinued lisinopriL [Zestril] 5 mg PO HS Discharge Medication List Apixaban [Eliquis] 5 mg PO BID 07/29/24 [History] Otc Prevagen 1 tab PO DAILY 07/29/24 [History] Simvastatin [Zocor] 20 mg PO HS 07/29/24 [History] Ibuprofen [Motrin Ib] 400 mg PO Q8H PRN 08/17/24 [History] Dapagliflozin Propanediol [Farxiga] 10 mg PO DAILY #30 tab 08/19/24 [Rx] Metoprolol Tartrate [Lopressor] 25 mg PO BID #60 tab 08/19/24 [Rx] Follow up Appointment(s)/Referral(s): Daily Hawley DO [Primary Care Provider] - 1-2 days Moshe Price MD [STAFF PHYSICIAN] - 1 Week Activity/Diet/Wound Care/Special Instructions: Activity limited until follow-up Follow-up with primary care provider on discharge Follow-up with cardiology outpatient Dr. Price to discuss and evaluate for ablation Continue taking medications as prescribed Monitor blood pressure daily and keep a diary of all readings for primary and cardiology follow-up Monitor pulse and keep readings for primary and cardiology follow-up. If pulse is 50 or less, please contact cardiology Discharge Disposition: HOME SELF-CARE
== END 2024-08-19 13:48 | disposition home or self-care (01) | DRG 310 ==
LOC: EC 13:53 → 3SCARD 15:51
PROVIDERS: ADMIT Internal Medicine; ATTEND Internal Medicine
DX: I48.4 Atypical atrial flutter (principal); E78.5 Hyperlipidemia, unspecified; F32.A Depression, unspecified; I10 Essential (primary) hypertension; I48.91 Unspecified atrial fibrillation; I47.19 Other supraventricular tachycardia; M19.90 Unspecified osteoarthritis, unspecified site; Z79.01 Long term (current) use of anticoagulants; Z79.84 Long term (current) use of oral hypoglycemic drugs; Z79.899 Other long term (current) drug therapy; Z82.49 Family history of ischemic heart disease and other diseases of the circulatory system; Z85.828 Personal history of other malignant neoplasm of skin; Z87.891 Personal history of nicotine dependence; Z86.79 Personal history of other diseases of the circulatory system
CPT/HCPCS: 36415; 71046; 80048; 80053; 80061; 83036; 83735; 83880; 84443; 84484; 85025; 85610; 85730; 93005; 96361; 96365; 96366; 99291

== ENCOUNTER 2024-10-28 06:19 | Day surgery (SDC) | payer MEDICARE ==
[2024-10-27 09:43] VITALS: BMI 27.8
[2024-10-28] MEDS ORDERED: MIDAZOLAM 2 MG/2 ML VIAL IV PRN (07:00)
[2024-10-28] MEDS ORDERED: HYDROmorphone 0.5 MG/0.5 ML SYRINGE IVP PRN (07:00)
[2024-10-28] MEDS: IV FLUID CONTINUATION 1,000 ML IV ONE (07:07)
[2024-10-28] MEDS ORDERED: PROPOFOL 10 MG/ML 20 ML VIAL IV ONE (08:22)
[2024-10-28] MEDS ORDERED: LIDOCAINE 1% INJ 10MG/ML (20 ML MDV) ONE (08:22)
[2024-10-28] MEDS ORDERED: HEPARIN SODIUM,PORCINE 10,000 UNIT/ML 1 ML VIAL ONE (08:22)
[2024-10-28] MEDS ORDERED: PHENYLEPHRINE 10 MG/ML VIAL ONE (08:22)
[2024-10-28] MEDS ORDERED: ONDANSETRON 4 MG/2 ML VIAL ONE (08:22)
[2024-10-28] MEDS ORDERED: SUCCINYLCHOLINE CHLORIDE 200 MG/10 ML VIAL IV ONE (08:22)
[2024-10-28] MEDS ORDERED: fentaNYL (PF) 50 MCG/ML 2 ML AMP ONE (08:22)
[2024-10-28 08:38] LABS: Basophils # (A) 0.02 10*3/uL (0.00-0.10); Basophils % (A) 0.3 %; Eosinophils # (A) 0.18 10*3/uL (0.04-0.35); Eosinophils % (A) 3.1 %; HCT 48.8 % (39.6-50.0); HGB 16.2 g/dL (13.0-17.0); Lymphocytes # (A) 1.48 10*3/uL (0.90-5.00); Lymphocytes % (A) 25.3 %; MCH 29.9 pg (27.0-32.0); MCHC 33.2 g/dL (32.0-37.0); Mean Platelet Volume 9.8 fL (9.5-12.2); Monocytes % (A) 8.5 %; Neutrophils # (A) 3.66 10*3/uL (1.80-7.70); Neutrophils % (A) 62.6 %; Platelet Count 210 10*3/uL (140-440); RBC 5.42 10*6/uL (4.40-5.60); RDW 13.2 % (11.5-14.5); WBC 5.85 10*3/uL (4.50-10.00)
[2024-10-28 08:44] LABS: ALT 23 U/L (4-49); AST 32 U/L (17-59); African American GFR (CKD) 85 (>60 ml/min/1.73 sqM); Alkaline Phosphatase 88 U/L (38-126); Anion Gap 5 mmol/L; Blood Urea Nitrogen 15 mg/dL (9-20); Carbon Dioxide 28 mmol/L (22-30); Chloride 107 mmol/L (98-107); Glucose 103 mg/dL (74-99); Non-African American GFR(CKD) 73 (>60 ml/min/1.73 sqM); Potassium 4.1 mmol/L (3.5-5.1); Sodium 140 mmol/L (137-145); Total Bilirubin 0.8 mg/dL (0.2-1.3); Total Protein 7.1 g/dL (6.3-8.2)
[2024-10-28] MEDS: HEPARIN SOD,PORK IN 0.45% NACL 25,000 UNIT in 0.45% NACL 1 250ML.BAG IV ONE (09:05)
[2024-10-28] MEDS: LIDOCAINE 1% INJ 10MG/ML (20 ML MDV) SQ ONE (09:05)
[2024-10-28] MEDS: IOPAMIDOL-370 100ML BTL INJ ONE (09:20)
--- NOTE | 2024-10-28 11:09 | P.HPCAR ---
History of Present Illness This is Dr. Price dictating an H/P on this patient The patient was interviewed and examined IMPRESSION / ASSESSMENT: Patient's symptomatic atrial fibrillation with tiredness and fatigue despite adequate rate control and failed medical treatment Underlying sick sinus syndrome Left ventricular systolic function at 50% with moderate biatrial enlargement PLAN: Heparin dose calculated, continue Eliquis Proceed with A-fib ablation. Patient is stable from a cardiovascular standpoint and continue Eliquis uninterrupted HPI Patient continues to complain of tiredness fatigue. He also complains of recurrent dizzy spells and although he has not had any syncopal spells, the last weekend when he was in [place] he was dizzy when he had to stand up from a sitting position. He is on Farxiga. His atrial fibrillation is rate controlled ROS: No fever chills or rigors, no cough, phlegm or expectoration, no nausea, vomiting or diarrhea, no hematuria, dysuria, no musculoskeletal complaints, no strokes or seizures, no skin lesions. EXAMINATION: Blood pressure 119/94, 126/97 mmHg afebrile, heart rate 86 beats minute irregular No JVD No lower extremity edema Soft abdomen nontender Clear lungs no rhonchi no crackles No murmurs REVIEW OF LABS, ECG & MEDICAL DATA Hemoglobin 16 white count normal platelet count normal 210,000 Electrolytes normal TSH 0.74 normal labs graph his medications include metoprolol tartrate 25 mg twice daily Farxiga 10 mg daily Eliquis 5 mg twice daily and Zocor 20 mg at bedtime Physical Exam Vitals: Vital Signs Temp Pulse Resp BP BP Pulse Ox 10/28/24 07:08 98.4 F 86 16 126/97 119/94 98 Intake and Output 10/27/24 10/28/24 10/28/24 22:59 06:59 14:59 Intake Total 573 Balance 573 Intake: IV 573 Other: Weight 108.2 kg 108.2 kg Past Medical History Past Medical History: Atrial Fibrillation, Cancer, Hyperlipidemia, Hypertension, Osteoarthritis (OA) Additional Past Medical History / Comment(s): SEE DR. PRICE'S H&P. basal cell on face 20yrs ago. hx polyps History of Any Multi-Drug Resistant Organisms: None Reported Past Surgical History: Hernia Repair Additional Past Surgical History / Comment(s): basal cell removed, colonoscopy, CAT. 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 pt aware not to use 24 hrs before procedure - Past Family History Brother(s) Family Medical History: Chest Pain / Angina, Coronary Artery Disease (CAD) Additional Family Medical History / Comment(s): burst aortic aneursym, on O2 Father Family Medical History: Cancer Additional Family Medical History / Comment(s): bladder cancer Mother Additional Family Medical History / Comment(s): non hodgkins and hodgkins lymphoma Physical Examination Vital Signs Temp Pulse Resp BP BP Pulse Ox 10/28/24 07:08 98.4 F 86 16 126/97 119/94 98 Intake and Output 10/27/24 10/28/24 10/28/24 22:59 06:59 14:59 Intake Total 573 Balance 573 Intake: IV 573 Other: Weight 108.2 kg 108.2 kg Results 10/28/24 06:47 10/28/24 06:47 Cardiac Enzymes 10/28/24 Range/Units 06:47 AST 32 (17-59) U/L CBC 10/28/24 Range/Units 06:47 WBC 5.85 (4.50-10.00) 10*3/uL RBC 5.42 (4.40-5.60) 10*6/uL Hgb 16.2 (13.0-17.0) g/dL Hct 48.8 (39.6-50.0) % Plt Count 210 (140-440) 10*3/uL Comprehensive Metabolic Panel 10/28/24 Range/Units 06:47 Sodium 140 (137-145) mmol/L Potassium 4.1 (3.5-5.1) mmol/L Chloride 107 (98-107) mmol/L Carbon Dioxide 28 (22-30) mmol/L BUN 15 (9-20) mg/dL Creatinine 1.00 (0.66-1.25) mg/dL Glucose 103 H (74-99) mg/dL Calcium 9.0 (8.4-10.2) mg/dL AST 32 (17-59) U/L ALT 23 (4-49) U/L Alkaline Phosphatase 88 (38-126) U/L Total Protein 7.1 (6.3-8.2) g/dL Albumin 4.0 (3.5-5.0) g/dL Current Medications Generic Name Dose Route Start Last Admin Trade Name Freq PRN Reason Stop Dose Admin Acetaminophen 650 mg 10/28/24 11:00 Acetaminophen Tab 325 Mg Tab PO 11/27/24 10:59 Q6HR PRN Mild Pain (Scale 1 to 3) Apixaban 5 mg 10/28/24 21:00 Apixaban 5 Mg Tab PO 11/27/24 20:59 BID GUERA Protocol Atorvastatin Calcium 10 mg 10/28/24 21:00 Atorvastatin 10 Mg Tab PO 11/27/24 20:59 HS GUERA Hydromorphone HCl 0.5 mg 10/28/24 07:00 Hydromorphone 0.5 Mg/0.5 Ml Syringe IVP 10/28/24 23:00 Q5M PRN Phase 1 or 2 - Pain Control Sodium Chloride 1,000 mls @ 20 mls/hr 10/28/24 06:51 Saline 0.9% IV 11/27/24 06:50 .Q24H GUERA Lactated Ringer's 1,000 mls @ 20 mls/hr 10/28/24 06:51 Lactated Ringers IV 11/27/24 06:50 .Q24H GUERA Acetaminophen 1,000 mg/ IV 100 mls @ 400 mls/hr 10/28/24 11:00 Solution IVPB 10/28/24 11:14 ONCE ONE Metoprolol Tartrate 25 mg 10/28/24 21:00 Metoprolol Tartrate 25 Mg Tab PO 11/27/24 20:59 BID GUERA Midazolam HCl 2 mg 10/28/24 07:00 Midazolam 2 Mg/2 Ml Vial IV 10/28/24 23:00 ONCE PRN Pre-Op Anxiety Sodium Chloride 12 ml 10/28/24 11:00 Sodium Chloride 0.9% Flush 10 Ml Syringe IV 11/27/24 10:59 Q12HR PRN Line Flush Intake and Output 10/27/24 10/28/24 10/28/24 22:59 06:59 14:59 Intake Total 573 Balance 573 Intake: IV 573 Other: Weight 108.2 kg 108.2 kg Patient Weight 10/29/24 06:59 Weight 108.2 kg 10/28/24 06:47 10/28/24 06:47
[2024-10-28] MEDS: LACTATED RINGERS 1,000 ML IV SCH (12:07)
[2024-10-28] MEDS: SODIUM CHLORIDE 0.9% 1,000 ML IV SCH (12:08)
[2024-10-28] MEDS: ACETAMINOPHEN IV (For NPO) 1,000 MG in EMPTY BAG 1 BAG IVPB ONE (17:23)
[2024-10-28] MEDS: APIXABAN 5 MG TAB PO SCH (20:51)
[2024-10-28] MEDS: METOPROLOL TARTRATE 25 MG TAB PO SCH (20:53)
[2024-10-28] MEDS: ATORVASTATIN 10 MG TAB PO SCH (20:53)
[2024-10-28] MEDS: ACETAMINOPHEN TAB 325 MG TAB PO PRN (23:44)
[2024-10-29 01:19] VITALS: RESP 16
[2024-10-29 08:43] VITALS: BP 115/75; PULSE 74; TEMP 97.8
--- NOTE | 2024-10-31 11:09 | P.EPPROC ---
- EP Procedure Note Electrophysiology Procedure Note: PROCEDURE A. 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 fib ablation/pulmonary vein isolation of all veins using cryo- ablation Complete entrance block in all 4 veins confirmed No evidence for phrenic nerve injury Left atrial septal ablation Esophageal deflection YES, right-sided esophagus Electrical cardioversion with a synchronized shock across the chest YES PROCEDURE DETAILS Written informed consent prior to procedure. Patient brought to the EP lab. General anesthesia given. Heparin administered. A city maintained above 300 seconds Both groins prepped and draped per protocol and venous sheaths placed. Esophagus intubated, circa catheter for temperature monitoring an endoscope for possible esophageal deflection. Phrenic nerve monitoring performed. Esophageal temperature monitoring per formed. Esophageal deflection performed if circa catheter overlapping with the balloon or circa temperature less than 27.5°C Intracardiac echocardiography performed. Pericardium evaluated. Left atrial appendage evaluated. Left atrium evaluated along with pulmonary veins Transseptal catheterization performed under fluoroscopic guidance and intracardiac echo guidance Cryoablation sheath exchanged, balloon catheter along with achieve catheter placed in the left atrium. Pulmonary veins isolated in the following sequence: Left superior pulmonary vein followed by left inferior pulmonary vein, followed by right inferior pulmonary vein and lastly right superior pulmonary vein. Phrenic nerve stimulation along with capture thresholds within the SVC and right superior pulmonary vein to identify the phrenic nerve proximity to the cryo- balloon. Pulmonary veins isolated and confirmed with entrance and exit block. Phrenic nerve integrity confirmed at the end of the procedure Ablation of the left atrial septum performed with cannulation of the superior branch of the right inferior to achieve ablation of the posterior septum of the left atrium. Ablation of electrograms confirmed Electrical cardioversion performed for persistence of atrial fibrillation despite successful ablation of all pulmonary veins at an antral level including the left atrial septal. Diagnostic catheters for the high right atrium, His bundle, coronary sinus placed. LA and RA pressures recorded LA pressure: Diagnostic EP study with coronary sinus pacing and recording electrical cardioversion Baseline measurements: QRS 76 ms sinus cycle length 963 ms, CA 105 ms and QRS 76 ms, QT 472 ms Interval 105 ms, HV interval 48 ms Venous sheaths were removed and hemostasis assured with a closure device. Patient extubated and transferred to recovery Increase procedural Multiple attempts needed for successful cryoablation isolation of the superior pulmonary vein. 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 The temperatures were very cold reaching almost -55 C within 60 seconds. Therefore since this is a very large vein and adequate occlusion resulted only in very cold temperatures, multiple lesions per delivered for 60 seconds each cannulating different tributaries. This took extra effort The left superior pulmonary vein was also very large and multiple attempts in cannulating different tributaries was needed to achieve antral level isolation, simply on account of the size of the veins PROCEDURES PERFORMED Diagnostic EP study CS pacing and recording Left and right transseptal catheterization Catheter the mapping of the tachycardia Intracardiac echocardiography Pulmonary vein isolation with transseptal and comprehensive EPS, [id number] Increased procedural services Linear ablation, left atrium, [id number] Electrical cardioversion with a synchronized shock across the chest [id number]
--- NOTE | 2024-10-31 11:11 | P.DS ---
Providers Attending physician: Moshe Price Primary care physician: Daily Hawley DO Hospital Course: Is doing well. No chest discomfort dizziness lightheadedness No palpitations EKG is normal Pulse rate in the 70s afebrile blood pressure 119/70 mmHg Heart sounds are normal no murmurs or gallop no rub Lungs are clear Impression persistent atrial fibrillation Status post A-fib ablation Plan Discharge home Continue anticoagulation Discharge home today in 1 week Plan - Discharge Summary Discharge Rx Participant: No New Discharge Prescriptions: No Action Simvastatin [Zocor] 20 mg PO HS Otc Prevagen 1 tab PO DAILY Apixaban [Eliquis] 5 mg PO BID Metoprolol Tartrate [Lopressor] 25 mg PO BID #60 tab Dapagliflozin Propanediol [Farxiga] 10 mg PO DAILY Discharge Medication List Apixaban [Eliquis] 5 mg PO BID 07/29/24 [History] Otc Prevagen 1 tab PO DAILY 07/29/24 [History] Simvastatin [Zocor] 20 mg PO HS 07/29/24 [History] Metoprolol Tartrate [Lopressor] 25 mg PO BID #60 tab 08/19/24 [Rx] Dapagliflozin Propanediol [Farxiga] 10 mg PO DAILY 10/27/24 [History] Follow up Appointment(s)/Referral(s): Steven Varela MD [STAFF PHYSICIAN] - 11/05/24 3:45 pm Patient Instructions/Handouts: Cardiac Ablation (DC) Discharge Disposition: HOME SELF-CARE
== END 2024-10-29 10:26 | disposition home or self-care (01) ==
LOC: CATHEP 06:19 → 6NMEDSUR 10:45 → CATHEP 10-29 10:26
PROVIDERS: ATTEND Internal Medicine Clinical Cardiac Electrophysiology
DX: I48.19 Other persistent atrial fibrillation (principal); I49.5 Sick sinus syndrome; I10 Essential (primary) hypertension; E78.5 Hyperlipidemia, unspecified; F32.A Depression, unspecified; M19.90 Unspecified osteoarthritis, unspecified site; Z98.890 Other specified postprocedural states; Z87.891 Personal history of nicotine dependence; Z82.49 Family history of ischemic heart disease and other diseases of the circulatory system; Z79.84 Long term (current) use of oral hypoglycemic drugs; Z79.01 Long term (current) use of anticoagulants; Z79.899 Other long term (current) drug therapy
CPT/HCPCS: 93005; 92960; 93656; 93657; 86900; 86901; 80053; 84443; 85025; 86850; C1894; C1769; C1760 ×4; C1733; C1766; C1730; J0330; J1644 ×2; J2405; J2003; J3010; J2704; Q9967; J2371